=== PATIENT | female | born 1985 | race African-American/Black ===

== ENCOUNTER 2017-07-18 06:29 | Emergency (ER) | payer OTHER | END 2017-07-18 07:23 | disposition home or self-care (01) | LOC: HOBED 06:29 | DX: O47.1 False labor at or after 37 completed weeks of gestation (principal); Z3A.39 39 weeks gestation of pregnancy; Z88.2 Allergy status to sulfonamides; Z79.899 Other long term (current) drug therapy | CPT/HCPCS: 59025; 76815; 99284-25 ==

== ENCOUNTER 2017-07-21 06:15 | Inpatient (IN) | payer OTHER ==
[2017-07-21] MEDS ORDERED: NS 1000 ML IV (06:45)
[2017-07-21] MEDS ORDERED: ONDANSETRON HCL 4 MG/2 ML VIAL IV PUSH (06:45)
[2017-07-21] MEDS ORDERED: OXYTOCIN 30 UNITS 500ML PREMIX IV (06:45)
[2017-07-21] MEDS ORDERED: LIDOCAINE HCL 1% 50 ML VIAL I-DERMAL (06:45)
[2017-07-21] MEDS ORDERED: LIDOCAINE HCL 1% 50 ML VIAL INFIL (06:45)
[2017-07-21] MEDS ORDERED: CITRIC ACID-SODIUM CITRATE LIQ 30 ML UDC PO (06:45)
[2017-07-21] MEDS ORDERED: NS 500 ML BOLUS IV (06:45)
[2017-07-21 07:17] LABS: BASOPHIL % 0.8 % (0.0-2.0); EOSINOPHIL # 0.5 TH/MM3 (0-0.4); HEMATOCRIT 34.7 % (35.0-46.0); HEMO FLAGS DIFF FINAL; HEMOGLOBIN 11.1 GM/DL (11.6-15.3); LYMPHOCYTE # 0.8 TH/MM3 (1.0-4.8); MEAN CELL VOLUME 77.7 FL (80.0-100.0); MEAN CORPUSCULAR HEMOGLOBIN 24.8 PG (27.0-34.0); MEAN PLATELET VOLUME 8.5 FL (7.0-11.0); MONO % 12.3 % (0.0-8.0); MONOCYTE # 0.6 TH/MM3 (0-0.9); NEUT % 59.9 % (16.0-70.0); PLATELET COUNT 131 TH/MM3 (150-450); RED BLOOD COUNT 4.46 MIL/MM3 (4.00-5.30); RED CELL DISTRIBUTION WIDTH 15.4 % (11.6-17.2); WHITE BLOOD COUNT 4.9 TH/MM3 (4.0-11.0)
[2017-07-21] MEDS: LACTATED RINGER'S 1000 ML IV ×3 (07:22→21:44)
[2017-07-21] MEDS: OXYTOCIN 30 UNITS/NS 500ML PREMIX IV (07:45)
[2017-07-21 07:47] LABS: AMPHETAMINE, URINE NEG (NEG); BARBITURATES, URINE NEG (NEG); BENZODIAZEPINE,URINE NEG (NEG); CANNABINOIDS, URINE NEG (NEG); COCAINE, URINE NEG (NEG)
[2017-07-21 07:48] LABS: BILIRUBIN, URINE NEG (NEG); BLOOD, URINE NEG (NEG); COMMENT (UR) CULT NOT INDICATED; CULTURE IF INDICATED CULT NOT INDICATED; GLUCOSE,URINE NEG (NEG); KETONE, URINE NEG (NEG); MUCUS URINE FEW /lpf (OCC); NITRITE,URINE NEG (NEG); PH, URINE 6.5 (5.0-8.5); SQUAMOUS EPITHELIAL CELL URINE 13 /hpf (0-5); URINE COLOR LIGHT-YELLOW (YELLW/STRAW); URINE LEUKOCYTE ESTERASE NEG (NEG)
[2017-07-21] MEDS ORDERED: OXYTOCIN 30 UNITS-500ML PREMIX 500 ML IV ×2 (09:00→23:45)
[2017-07-21] MEDS: LACTATED RINGER'S 1000 ML BOLUS IV (13:41)
[2017-07-21] MEDS: fentaNYL 2MCG-BUPIV 0.125% INJ 100 ML (13:44)
[2017-07-21] MEDS: ePHEDrine/NS 25 MG/5 ML SYRINGE (13:44)
[2017-07-21] MEDS ORDERED: ePHEDrine/NS 25 MG/5 ML SYRINGE IV PUSH (15:15)
[2017-07-21] MEDS: fentaNYL 2MCG-BUPIV 0.125% 150 ML EPIDURAL ×2 (15:28→21:43)
[2017-07-21] MEDS ORDERED: fentaNYL 2MCG-BUPIV 0.125% 100 ML EPIDURAL (16:00)
[2017-07-21] MEDS ORDERED: DO NOT ADMINISTER ANTICOAGULANTS (16:00)
[2017-07-21] MEDS ORDERED: NO SYSTEM NARCOTICS (16:00)
[2017-07-21] MEDS: diphenhydrAMINE HCL 50 MG/ML VIAL IV PUSH (21:05)
[2017-07-21] MEDS ORDERED: SODIUM CHLORIDE 0.9% FLUSH 10 ML FLUSH IV FLUSH (23:45)
[2017-07-21] MEDS ORDERED: DOCUSATE SODIUM 50 MG/SENNA 8.6 MG TAB PO (23:45)
[2017-07-21] MEDS ORDERED: ONDANSETRON ODT 4 MG TAB PO (23:45)
[2017-07-21] MEDS ORDERED: ZOLPIDEM TARTRATE 5 MG TAB PO (23:45)
[2017-07-21] MEDS ORDERED: ALUMINUM/MAGNESIUM/SIMETH 30 ML CUP PO (23:45)
[2017-07-22] MEDS: MINERAL OIL 10 ML VIAL TOPICAL (00:14)
[2017-07-22] MEDS: IBUPROFEN 800 MG TAB PO ×3 (03:09→19:54)
[2017-07-22] MEDS: BENZOCAINE 20% TOPICAL SPRAY 60 ML CAN TOPICAL (05:30)
[2017-07-22] MEDS: WITCH HAZEL 50%/GLYCERIN 12.5% 40 PAD JAR TOPICAL (05:30)
[2017-07-22] MEDS: ACETAMINOPHEN 325 MG TAB PO ×3 (09:19→19:55)
[2017-07-23] MEDS: ACETAMINOPHEN 325 MG TAB PO ×2 (04:51→13:13)
[2017-07-23] MEDS: IBUPROFEN 800 MG TAB PO ×2 (04:51→13:13)
[2017-07-23] MEDS: DIPHTH/TETANUS/ACEL PERTUSSIS (BOOSTER) 0.5 ML VIAL/PFS IM (04:51)
[2017-07-23] MEDS: LACTATED RINGER'S 1000 ML IV ×2 (10:04→10:07)
[2017-07-23] MEDS: SODIUM CHLORIDE 0.9% FLUSH 10 ML FLUSH IV FLUSH (10:04)
[2017-07-23] MEDS: MEASLES, MUMPS, RUBELLA VACCINE 0.5 ML VIAL SQ (10:05)
[2017-07-25 15:22] LABS: PHENCYCLIDINE URINE NEG (NEG)
[2017-07-25 15:23] LABS: BATH SALTS (MDPV) UR NEG (NEG); BUPRENORPHINE UR NEG (NEG); ECSTASY (MDMA) UR NEG (NEG); FENTANYL UR NEG (NEG); HEROIN (6-ACETYLMORPHINE) UR NEG (NEG); K2 SPICE UR NEG (NEG); OBGABAPENTIN UR NEG (NEG); OBHYDROMORPHONE U NEG (NEG); OBMETHADONE UR NEG (NEG); OXYCODONE (PERCODAN) NEG (NEG)
== END 2017-07-23 17:10 | disposition home or self-care (01) | DRG 775 ==
LOC: H2EA 06:15 → H1EA 07-22 02:10 → H2EB 06:18
PROC: 10D07Z6 Extraction of Products of Conception, Vacuum, Via Natural or Artificial Opening (ICD-10-PCS; principal; 2017-07-21)
PROC: 0KQM0ZZ Repair Perineum Muscle, Open Approach (ICD-10-PCS; 2017-07-21)
PROC: 10907ZC Drainage of Amniotic Fluid, Therapeutic from Products of Conception, Via Natural or Artificial Opening (ICD-10-PCS; 2017-07-21)
DX: O70.1 Second degree perineal laceration during delivery (principal); Z37.0 Single live birth; Z3A.39 39 weeks gestation of pregnancy
CPT/HCPCS: 59025; 80307; 81001; 85025; 90715